=== PATIENT | male | born 1945 | race Caucasian/White ===

== ENCOUNTER 2017-09-22 12:32 | Outpatient (CLI) | payer MEDICARE, OTHER | END 2017-09-22 12:33 | disposition critical access hospital (66) | LOC: EMS 12:32 | PROVIDERS: ATTEND Surgery | DX: R07.81 Pleurodynia (principal); V80.010A Animal-rider injured by fall from or being thrown from horse in noncollision accident, initial encounter; Y93.52 Activity, horseback riding; Y92.832 Beach as the place of occurrence of the external cause | CPT/HCPCS: A0425; A0429 ==

== ENCOUNTER 2017-09-22 13:05 | Emergency (ER) | payer MEDICARE, OTHER ==
--- NOTE | 2017-09-22 13:08 | ED Physician Documentation ---
History of Present Illness - Stated complaint Stated Complaint: FALL FROM HORSE - Chief complaint Chief Complaint: General - History obtained from History obtained from: Patient, EMS - History of Present Illness Timing: Today (Relatively healthy 72-year-old gentleman was riding a horse, I guess the horse kind of got in a fight with another horse and he was trying to get off and came off awkwardly and fell [place] solid[place] with his right posterior thorax. He denies head or neck injury. He has not been ambulatory since the incident because of pain although declines pain medication on initial evaluation. He is not short of breath. No other injuries.) Review of Systems Ten Systems: 10 systems reviewed and negative Cardiac: denies: Chest pain / pressure, Palpitations Respiratory: denies: Dyspnea, Cough GI: denies: Abdominal Pain PD PAST MEDICAL HISTORY - Past Medical History Past Medical History: Yes Cardiovascular: Hypertension - Present Medications Home Medications: Ambulatory Orders Medication Instructions Recorded Confirmed Azelastine HCl 09/22/17 Carvedilol BID 09/22/17 Cetirizine [ZyrTEC] 09/22/17 Chlorthalidone 12.5 mg DAILY 09/22/17 09/22/17 Fluticasone Propionate [Flovent 09/22/17 Diskus] Silodosin [Rapaflo] DAILY 09/22/17 - Allergies Allergies/Adverse Reactions: Allergies Allergy/AdvReac Type Severity Reaction Status Date / Time No Known Drug Allergies Allergy Verified 09/22/17 13:10 - Living Situation Living Arrangement: reports: At home (in [place]) - Social History Does the pt smoke?: No Does the pt drink ETOH?: No - Family History Family history: reports: Non contributory PD ED PE NORMAL - Vitals Vital signs reviewed: Yes - General General: Alert and oriented X 3, No acute distress - HEENT HEENT: PERRL, EOMI, Pharynx benign - Neck Neck: Supple, no meningeal sign, No bony TTP - Cardiac Cardiac: RRR, No murmur - Respiratory Respiratory: No respiratory distress, Clear bilaterally - Abdomen Abdomen: Non tender - Back Back: Other (He is very tender to the right posterior ribs and scapular area and parathoracic musculature, less so in the midline. He has some high right- sided lumbar spine tenderness as well.) - Derm Derm: Normal color, Warm and dry - Extremities Extremities: No deformity, No tenderness to palpate, Normal ROM s pain, No edema , No calf tenderness / cord - Neuro Neuro: Alert and oriented X 3, delimber operator 2-12 intact Eye Opening: Spontaneous Motor: Obeys Commands Verbal: Oriented GCS Score: 15 - Psych Psych: Normal mood, Normal affect Results - Vitals Vitals: Vital Signs - 24 hr 09/22/17 09/22/17 09/22/17 12:59 14:23 15:35 Temperature 37.2 C Heart Rate 77 121 H 98 Respiratory 16 96 H 15 Rate Blood Pressure 160/95 H 169/113 H 174/108 H O2 Saturation 98 98 Oxygen O2 Source Room air - Labs Labs: Laboratory Tests 09/22/17 09/22/17 09/22/17 14:22 14:22 14:22 WBC 13.8 H RBC 4.75 Hgb 15.1 Hct 44.0 MCV 92.7 MCH 31.9 H MCHC 34.4 RDW 13.0 Plt Count 138 MPV 7.7 Neut # (Auto) 12.2 H Lymph # (Auto) 0.7 L [place] # (Auto) 0.9 Eos # (Auto) 0.0 Baso # (Auto) 0.0 Absolute Nucleated RBC 0.00 Nucleated RBC % 0.0 PT 12.4 INR 1.1 Sodium 137 Potassium 3.0 L Chloride 102 Carbon Dioxide 29 Anion Gap 6.0 BUN 18 Creatinine 0.8 Estimated GFR (MDRD) 95 Glucose 172 H Calcium 9.4 Total Bilirubin 1.7 H AST 40 ALT 31 Alkaline Phosphatase 51 Total Protein 7.7 Albumin 3.8 Globulin 3.9 Albumin/Globulin Ratio 1.0 Lipase 30 - Rads (name of study) C Spine CT Radiology: EMP read contemporaneously (Mild scoliosis and degenerative changes, the right pneumothorax is seen, but no acute fractures of the cervical spine.) T/L spine CTs Radiology: EMP read contemporaneously (Right L1 transverse process fracture; lower thoracic findings as separately reported. Small right hemopneumothorax. Nondepressed T10 fracture involving 3 columns. Right transverse process fractures from T9-L1; nondisplaced spinous process fractures from T8-T11. Right rib fractures from fifth through 12th ribs.) Chest CT Radiology: EMP read contemporaneously (1. Small right-sided pneumothorax with dependent atelectasis and possible right lower lung contusions. ) CT Head Radiology: EMP read contemporaneously (NAD) CT A/P Radiology: EMP read contemporaneously (1. Probable right adrenal hemorrhage. No active extravasation. Normal left adrenal gland. 2. No additional solid organ injury in the abdomen or pelvis. 3. Right-sided hemopneumothorax. Pneumothorax component is small. Dependent atelectasis. Right lower lobe contusions. 4. Diverticulosis. Normal appendix. No bowel injury identified.) PD MEDICAL DECISION MAKING - ED course Complexity details: re-evaluated patient ED course: 22-year-old gentleman with fall from horse, initially seemed like isolated right -sided back injuries and was sent for CT imaging of the spine and thorax which on my view initially showed a hemopneumothorax, several spinous process fractures and several broken ribs. I discussed this with the patient and it seems that he probably needs transfer to a higher level of care specifically a trauma center and [facility] was contacted and he was accepted there by Dr. Luna Hartman in the emergency department at 2:40 PM and cobras were completed. He did become more tachycardic albeit not hypotensive in the emergency department and the decision was made to fly him given the long transport time by ground. - Critical Care Time(min): 45 Time Includes: Direct patient care, Review records, Reassess patient, Document care, Coordinate care, Medical consult, Family consult for tx dec - Sepsis Event Vital Signs: Vital Signs - 24 hr 09/22/17 09/22/17 09/22/17 12:59 14:23 15:35 Temperature 37.2 C Heart Rate 77 121 H 98 Respiratory 16 96 H 15 Rate Blood Pressure 160/95 H 169/113 H 174/108 H O2 Saturation 98 98 Oxygen O2 Source Room air Departure - Departure Disposition: 02 Transfer Acute Care Hosp Clinical Impression: Hemopneumothorax on right, Multiple transverse process fractures, Adrenal hemorrhage Multiple rib fractures Qualifiers: Encounter type: initial encounter Fracture type: closed Laterality: right Qualified Code(s): S22.41XA - Multiple fractures of ribs, right side, initial encounter for closed fracture Fall from horse Qualifiers: Encounter type: initial encounter Qualified Code(s): V80.010A - Animal-rider injured by fall from or being thrown from horse in noncollision accident, initial encounter Fracture of spinous process of lumbar vertebra Qualifiers: Encounter type: initial encounter Fracture type: closed Qualified Code(s): S32.009A - Unspecified fracture of unspecified lumbar vertebra, initial encounter for closed fracture Closed fracture of spinous process of thoracic vertebra Qualifiers: Encounter type: initial encounter Qualified Code(s): S22.008A - Other fracture of unspecified thoracic vertebra, initial encounter for closed fracture T10 vertebral fracture Qualifiers: Encounter type: initial encounter Fracture type: closed Fracture morphology: wedge compression Qualified Code(s): S22.070A - Wedge compression fracture of T9 -T10 vertebra, initial encounter for closed fracture Condition: Serious Discharge Date/Time: 09/22/17 15:36
[2017-09-22] MEDS ORDERED: oxyCOD/ACETAMIN 5 MG/325 MG TABLET PO STA (13:11)
[2017-09-22] MEDS ORDERED: SODIUM CHLORIDE 0.9% 1,000 ML IV ONE (14:22)
[2017-09-22] MEDS ORDERED: MORPHINE 10 MG/ML VIAL IVP STA (14:22)
[2017-09-22 14:34] LABS: BASOPHILS % (AUTO) 0.2 %; EOSINOPHILS % (AUTO) 0.2 %; HGB - HEMOGLOBIN 15.1 g/dL (14.0-18.0); LYMPHOCYTES # (AUTO) 0.7 10^3/uL (1.5-3.5); LYMPHOCYTES % (AUTO) 4.8 %; MEAN CORPUSCULAR HEMOGLOBIN 31.9 pg (27.0-31.0); MEAN CORPUSCULAR HGB CONC 34.4 g/dL (32.0-36.0); MEAN CORPUSCULAR VOLUME 92.7 fL (80.0-94.0); MEAN PLATELET VOLUME 7.7 fL (7.4-11.4); MONOCYTES # (AUTO) 0.9 10^3/uL (0.0-1.0); MONOCYTES % (AUTO) 6.8 %; NEUTROPHILS # (AUTO) 12.2 10^3/uL (1.5-6.6); PLT - PLATELET COUNT 138 10^3/uL (130-450); RED BLOOD COUNT 4.75 10^6/uL (4.70-6.10); WHITE BLOOD COUNT 13.8 x10^3/uL (4.8-10.8)
[2017-09-22 14:40] LABS: INR 1.1 (0.8-1.2); PT - PROTHROMBIN TIME 12.4 secs (9.9-12.6)
--- NOTE | 2017-09-22 14:59 | CT Report ---
Procedure Date: 09/22/2017 Accession Number: [id number] / [id number] Procedure: CT - Cervical Spine W/O CPT Code: FULL RESULT: EXAM: CT CERVICAL SPINE WITHOUT CONTRAST DATE: 09/22/2017 02:24 PM. HISTORY: Posterior chest/back inj, fall from horse. COMPARISONS: None. TECHNIQUE: Thin-section axial images were acquired of the cervical spine without contrast. Post-processing: Coronal and sagittal reformats. Other: None. In accordance with CT protocol optimization, one or more of the following dose reduction techniques were utilized for this exam: automated exposure control, adjustment of mA and/or KV based on patient size, or use of iterative reconstructive technique. FINDINGS: Alignment: Mild scoliosis. No listhesis. Bones: No fracture or bone lesion. Interspace Levels/Facets: Disk spaces generally well preserved. Prominent anterior osteophytes at C6-C7. Mild generalized degenerative changes. Musculature: Unremarkable. Other: No prevertebral soft tissue swelling. Right pneumothorax; see separate report. IMPRESSION: 1. Right pneumothorax. 2. Mild scoliosis with degenerative changes. RADIA
[2017-09-22 15:02] LABS: ALBUMIN 3.8 g/dL (3.2-5.5); BILIRUBIN,TOTAL 1.7 mg/dL (0.2-1.0); CALCIUM 9.4 mg/dL (8.5-10.3); CREATININE 0.8 mg/dL (0.6-1.2); TOTAL PROTEIN 7.7 g/dL (6.7-8.2)
[2017-09-22] MEDS ORDERED: IOPAMIDOL-300 100 ML VIAL ONE (15:06)
--- NOTE | 2017-09-22 15:15 | CT Report ---
Procedure Date: 09/22/2017 Accession Number: [id number] / [id number] Procedure: CT - Thoracic Spine W/O CPT Code: FULL RESULT: EXAM: CT THORACIC SPINE WITHOUT CONTRAST EXAM DATE: 09/22/2017 02:24 PM. CLINICAL HISTORY: Posterior chest/back inj, fall from horse. COMPARISONS: None. TECHNIQUE: Thin-section axial images were acquired of the thoracic spine from C7 to L1 without contrast. Post-processing: Coronal and sagittal reformats. Other: None. IV Contrast: None. In accordance with CT protocol optimization, one or more of the following dose reduction techniques were utilized for this exam: automated exposure control, adjustment of mA and/or KV based on patient size, or use of iterative reconstructive technique. FINDINGS: Alignment: Normal scoliosis. No listhesis. Bones: Fractures of right transverse processes of T9, T10, T11, T12, and L1. Fractured spinous processes of T8, T9, T10, and T11. Nondisplaced upper endplate fracture of T10 involving anterior and intermediate columns, but with no retropulsion of cortex. Probable small fracture line in the adjacent corner of T9, versus chronic change. Other vertebral bodies appear to be intact, though subtle lesions could BE missed. Fractures of right posterior to posterior lateral fifth through 12th ribs. disk Levels/Facets: Mild generalized disk space narrowing with marginal lipping. Mild generalized ejection changes. Musculature: Unremarkable. Other: Small right pneumothorax, tiny right pleural effusion. Mild atelectasis on the right with tiny contusion in the right posterior sulcus. Subcutaneous emphysema posterior to right ribs. IMPRESSION: 1. Small right hemopneumothorax. 2. Nondepressed T10 fracture involving 3 columns. 3. Right transverse process fractures from T9-L1; nondisplaced spinous process fractures from T8-T11. 4. Right rib fractures from fifth through 12th ribs. RADIA The above findings were discussed with Christos Barclay by Dr. Robel Worley at 15:13 hrs on 09/22/17.
--- NOTE | 2017-09-22 15:15 | CT Report ---
Procedure Date: 09/22/2017 Accession Number: [id number] / [id number] Procedure: CT - Lumbar Spine W/O CPT Code: FULL RESULT: EXAM: CT LUMBAR SPINE WITHOUT CONTRAST EXAM DATE: 09/22/2017 02:24 PM. CLINICAL HISTORY: Posterior chest/back inj, fall from horse. COMPARISONS: None. TECHNIQUE: Thin-section axial images were acquired of the lumbar spine from T12 to S1 without contrast. Post-processing: Coronal and sagittal reformats. Other: None. In accordance with CT protocol optimization, one or more of the following dose reduction techniques were utilized for this exam: automated exposure control, adjustment of mA and/or KV based on patient size, or use of iterative reconstructive technique. FINDINGS: Alignment: No scoliosis or spondylolisthesis. Bones: 5 lumbar vertebrae. See separate report for lower thoracic fractures. Fracture of right L1 transverse process. Disk Levels/Facets: Minimal disk space narrowing at L2-L3 and L3-L4. Other disk spaces well-preserved. Mild to moderate degenerative changes. Musculature: Unremarkable. Other: Subcutaneous emphysema posterior to lower right ribs. Spondylosis subcutaneous emphysema tracking anterior to lower thoracic spine. Small right pneumothorax. Otherwise unremarkable. IMPRESSION: 1. Right L1 transverse process fracture; lower thoracic findings as separately reported. 2. Mild degenerative changes. RADIA
--- NOTE | 2017-09-22 15:22 | CT Report ---
Procedure Date: 09/22/2017 Accession Number: [id number] / [id number] Procedure: CT - Chest W/O CPT Code: FULL RESULT: EXAM: CT CHEST WITHOUT CONTRAST. EXAM DATE: 09/22/2017 02:24 PM. CLINICAL HISTORY: Posterior chest/back injury, fall from horse. COMPARISONS: None. TECHNIQUE: Routine helical CT imaging was performed through the chest. IV contrast: None. Reconstructions: Coronal and sagittal. In accordance with CT protocol optimization, one or more of the following dose reduction techniques were utilized for this exam: automated exposure control, adjustment of mA and/or KV based on patient size, or use of iterative reconstructive technique. FINDINGS: Lungs/Pleura: Small anterior and apical right-sided pneumothorax with associated lower lobe densities probably representing atelectasis. More focal opacities in the medial right lower lobe may also represent lung contusions, image 54. Subpleural reticulation noted in the left upper and left lower lobe with mild left lower lobe atelectasis. No left pneumothorax or effusion. Incidental calcified left upper lobe granuloma. 2 mm right upper lobe nodule, image 26. No endobronchial lesion or bronchial wall thickening. Mediastinum: Mild cardiac enlargement. No pericardial effusion or adenopathy. Mild coronary artery calcifications are noted. Bones: See separate thoracic spine CT report. Nondisplaced anterior right third, mildly displaced anterior right fourth, segmental right fifth, sixth, and seventh, displaced posterior medial right eighth, ninth and 10th and 11th and nondisplaced medial right 12th rib fractures are noted. Mildly displaced ninth through 11th spinous process fractures. Nondisplaced right T9- L1 transverse process fractures are noted. Visualized Abdomen: Simple liver cysts. No definite liver laceration on this noncontrast enhanced CT. Normal left adrenal gland. Hyperdense and enlarged right adrenal gland measuring 3.1 x 1.8 x 3.1 cm measuring 58 Hounsfield units. Given the right lower back intramuscular hematoma and multiple rib fractures, favor right adrenal hemorrhage over a hyperdense adrenal lesion. Other: 0.9 cm and 0.8 cm low-density left thyroid nodules, image 7. Heterogeneous but otherwise normal right thyroid gland containing coarse calcifications posteriorly on image 2. No supraclavicular or axillary adenopathy noted. Asymmetric enlargement of the right-sided paraspinal soft tissues with subcutaneous emphysema most compatible with an intramuscular hematoma and soft tissue contusion. IMPRESSION: 1. Small right-sided pneumothorax with dependent atelectasis and possible right lower lung contusions. 2. No left pneumothorax. No pleural effusions are noted. 3. Mild cardiac enlargement. Coronary artery disease. No pericardial effusion or adenopathy. 4. Right adrenal hemorrhage. Normal left adrenal gland. No solid organ injury on this noncontrast enhanced CT and upper abdomen. 5. Multiple segmental and nonsegmental fractures of the right ribs. Correlate for flail chest physiology. See separate CT of the thoracic and lumbar spine for additional details. RADIA The above findings were discussed with Christos Barclay by Dr. Yazmin Wheeler at 15:20 hrs on 09/22/17.
[2017-09-22] MEDS ORDERED: ONDANSETRON 4 MG/2 ML VIAL IVP STA (15:34)
[2017-09-22 15:36] VITALS: BP 174/108
--- NOTE | 2017-09-22 15:36 | CT Report ---
Procedure Date: 09/22/2017 Accession Number: [id number] / [id number] Procedure: CT - Head W/O CPT Code: FULL RESULT: EXAM: CT HEAD EXAM DATE: 09/22/2017 03:15 PM. CLINICAL HISTORY: Fall from height. COMPARISON: None. TECHNIQUE: Multiaxial CT images were obtained from the foramen magnum to the vertex. Reformats: Sagittal and coronal. IV contrast: None. In accordance with CT protocol optimization, one or more of the following dose reduction techniques were utilized for this exam: automated exposure control, adjustment of mA and/or KV based on patient size, or use of iterative reconstructive technique. FINDINGS: Parenchyma: No intraparenchymal hemorrhage. No evidence of mass, midline shift, or CT findings of acute infarction. Grullon-white differentiation is distinct. Diffuse chronic microangiopathic white matter changes are evident. Extraaxial Spaces: Normal for age. No subdural or epidural collections identified. Ventricles: The ventricles and cortical sulci are enlarged, consistent with age-related tissue loss. Sinuses and orbits: Imaged paranasal sinuses, orbits, and mastoids show no significant abnormality. Bones: No evidence of fracture or calvarial defect. Other: None. IMPRESSION: Generalized age-related cortical atrophic changes without evidence of acute intracranial abnormality. RADIA
[2017-09-22] MEDS ORDERED: IOPAMIDOL-300 100 ML VIAL IVP ONE (15:38)
[2017-09-22] MEDS ORDERED: ONDANSETRON 4 MG/2 ML VIAL ONE (15:43)
--- NOTE | 2017-09-22 15:55 | CT Report ---
Procedure Date: 09/22/2017 Accession Number: [id number] / [id number] Procedure: CT - Abdomen/Pelvis W/ CPT Code: FULL RESULT: EXAM: CT ABDOMEN AND PELVIS EXAM DATE: 09/22/2017 03:15 PM. CLINICAL HISTORY: Fall from height. COMPARISONS: None. TECHNIQUE: Routine helical CT imaging was performed through the abdomen and pelvis. IV contrast: 100 mL of Omnipaque 300. Enteric contrast: No. Reconstructions: Coronal and sagittal. In accordance with CT protocol optimization, one or more of the following dose reduction techniques were utilized for this exam: automated exposure control, adjustment of mA and/or KV based on patient size, or use of iterative reconstructive technique. FINDINGS: Lung Bases: Mild cardiac enlargement. Combination of right lower lobe atelectasis, lung contusion and hemothorax noted. Small anterior right basilar pneumothorax. Dependent atelectasis at the left base. No pericardial effusion. Liver: No laceration or mass. Left liver cyst measuring 2.5 cm is noted. Gallbladder/Bile Ducts: Unremarkable. Spleen: Normal. Pancreas: Normal. Adrenal Glands: Right adrenal hemorrhage again identified. No active extravasation. Normal left adrenal gland. Kidneys: Normal. No masses or hydronephrosis. Peritoneal Cavity/Bowel: Normal. No free fluid, free air or adenopathy. No masses or acute inflammatory process. There are multiple diverticula seen which most severely affect the sigmoid colon. No wall thickening or adjacent inflammation seen. No obstruction noted. The appendix is well visualized and normal. Pelvic Organs: Normal bladder. Moderate prostate enlargement with central coarse prostate calcifications. Normal seminal vesicles. No pelvic mass, adenopathy or collection. Vasculature: No aneurysms or other significant abnormality. Bones: See separate CT of the chest, thoracic, lumbar spine for additional details regarding thoracic and lumbar fractures. Multiple rib fractures described separately are again identified. Multilevel degenerative disk and facet arthropathy. 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 Other: Small umbilical fat-containing hernia. IMPRESSION: 1. Probable right adrenal hemorrhage. No active extravasation. Normal left adrenal gland. 2. No additional solid organ injury in the abdomen or pelvis. 3. Right-sided hemopneumothorax. Pneumothorax component is small. Dependent atelectasis. Right lower lobe contusions. 4. Diverticulosis. Normal appendix. No bowel injury identified. RADIA
== END 2017-09-22 15:36 | disposition short-term general hospital (02) ==
LOC: ED 13:05
DX: S27.2XXA Traumatic hemopneumothorax, initial encounter (principal); E27.8 Other specified disorders of adrenal gland; S22.41XA Multiple fractures of ribs, right side, initial encounter for closed fracture; S32.019A Unspecified fracture of first lumbar vertebra, initial encounter for closed fracture; S22.061A Stable burst fracture of T7-T8 vertebra, initial encounter for closed fracture; S22.070A Wedge compression fracture of T9-T10 vertebra, initial encounter for closed fracture; R00.0 Tachycardia, unspecified; I10 Essential (primary) hypertension; V80.010A Animal-rider injured by fall from or being thrown from horse in noncollision accident, initial encounter; Y93.52 Activity, horseback riding; Y92.832 Beach as the place of occurrence of the external cause
CPT/HCPCS: 36415; 70450; 71250; 72125; 72128; 72131; 74177; 80053; 83690; 85025; 85610; 96361; 96374; 96375; 99284; 99291; A9270; Q9967; 86850; 86900; 86901